=== PATIENT | female | born 1945 | race Caucasian/White ===

== ENCOUNTER 2021-04-11 12:05 | Outpatient (CLI) | payer MEDICARE ==
[2021-04-11 14:28] LABS: Hemoglobin 11.4 g/dL (12.0-15.5); Mean Corpuscular HGB CONC 31.1 g/dL (32.0-36.0); Mean Corpuscular Hemoglobin 28.5 pg (27.0-33.0); Mean Corpuscular Volume 91.8 fl (81.6-98.3); Mean Platelet Volume 8.5 fl (7.4-10.4); Platelet Count 190 10x3/uL (150-450); RBC Distribution Width 13.5 % (11.5-14.5); White Blood Cell (WBC) Count 7.8 10x3/uL (3.5-10.5)
[2021-04-11 14:53] LABS: Anion Gap 12 mmol/L (10-20); BUN (Urea Nitrogen) 17 mg/dL (9.8-20.1); Calc. Creatinine Clearance 0 mL/min (70-130); Calcium 9.2 mg/dL (7.8-10.44); Carbon Dioxide 31 mmol/L (23-31); Chloride 97 mmol/L (98-107); Glucose 82 mg/dL (83-110); Potassium 5.4 mmol/L (3.5-5.1); Sodium 135 mmol/L (136-145)
[2021-04-11 20:56] LABS: SARS-CoV-2 PCR by NAA Not Detected (NotDetected)
== END 2021-04-11 12:06 | disposition home or self-care (01) ==
LOC: CSHLAB 12:05
PROVIDERS: ATTEND Podiatrist Foot & Ankle Surgery
DX: Z01.812 Encounter for preprocedural laboratory examination (principal); Z20.822 Contact with and (suspected) exposure to COVID-19; M20.41 Other hammer toe(s) (acquired), right foot
CPT/HCPCS: 80048; 85027; 87635; U0003; U0005

== ENCOUNTER 2021-04-16 09:24 | Day surgery (SDC) | payer MEDICARE ==
[2021-04-15 11:26] VITALS: BMI 37.9
[2021-04-16] MEDS ORDERED: Lidocaine 2% 20 ml MDV ONE (10:42)
[2021-04-16] MEDS ORDERED: Neomycin-Polymyxin 1 ML AMP ONE (10:43)
[2021-04-16] MEDS ORDERED: Bupivacaine PF 0.5% 30 ML VIAL ONE (10:43)
[2021-04-16] MEDS ORDERED: Lidocaine 1% MPF 2 ML VIAL ONE (11:23)
[2021-04-16] MEDS ORDERED: PROPOFOL 20 ML ONE (11:52)
[2021-04-16] MEDS ORDERED: Lidocaine 1% PF 5 ML VIAL ONE (11:52)
[2021-04-16] MEDS ORDERED: Fentanyl 100 MCG/2 ML VIAL ONE (11:52)
[2021-04-16] MEDS ORDERED: PHENYLEPHRINE-NS 100 MCG/ML 10 ML SYRINGE ONE (12:52)
[2021-04-16] MEDS ORDERED: Ondansetron PF 4 MG/2 ML Vial ONE (13:43)
== END 2021-04-16 15:35 | disposition home or self-care (01) ==
LOC: CSHSDC 09:24
PROVIDERS: ATTEND Podiatrist Foot & Ankle Surgery
DX: M20.41 Other hammer toe(s) (acquired), right foot (principal); Z79.899 Other long term (current) drug therapy; I10 Essential (primary) hypertension; Z90.710 Acquired absence of both cervix and uterus
CPT/HCPCS: 76000; C1713; J2405; J2704; J3010; J3490; S0020

== ENCOUNTER 2022-05-10 21:59 | Inpatient (IN) | payer MEDICARE ==
[2022-05-10 23:32] LABS: #Basophils 0.1 10x3/uL (0.0-0.2); #Eosinphils 0.6 10x3/uL (0.0-0.5); #Monocytes 1.1 10x3/uL (0.0-1.1); %Basophils 0.6 % (0.0-2.0); %Eosinophils 5.7 % (0.0-6.0); %Lymphocytes 24.8 % (18.0-47.0); %Monocytes 10.7 % (0.0-10.0); %Neutrophils 57.8 % (40.0-75.0); Hemoglobin 9.8 g/dL (12.0-15.5); Mean Corpuscular Hemoglobin 29.9 pg (27.0-33.0); Mean Corpuscular Volume 90.5 fl (81.6-98.3); Mean Platelet Volume 8.6 fl (7.4-10.4); Platelet Count 211 10x3/uL (150-450); RBC Distribution Width 13.7 % (11.5-14.5); Red Blood Cell (RBC) Count 3.28 10x6/uL (3.90-5.03); White Blood Cell (WBC) Count 10.3 10x3/uL (3.5-10.5)
[2022-05-10 23:51] LABS: ALT (SGPT) 51 U/L (8-55); AST (SGOT) 75 U/L (5-34); Albumin 3.8 g/dL (3.4-4.8); Alkaline Phosphatase 61 U/L (40-110); Anion Gap 15 mmol/L (10-20); BUN (Urea Nitrogen) 36 mg/dL (9.8-20.1); Bilirubin, Total 0.5 mg/dL (0.2-1.2); Calc. Creatinine Clearance 0 mL/min (70-130); Calcium 9.4 mg/dL (7.8-10.44); Carbon Dioxide 26 mmol/L (23-31); Chloride 96 mmol/L (98-107); Globulin 3.1 g/dL (2.4-3.5); Glucose 87 mg/dL (83-110); Potassium 4.7 mmol/L (3.5-5.1); Protein, Total 6.9 g/dL (5.8-8.1); Sodium 132 mmol/L (136-145)
[2022-05-11 00:10] LABS: SARS-CoV-2 NAA Rapid Test Not Detected (NotDetected)
[2022-05-11 00:39] LABS: Bilirubin 3+ (Negative); Blood, Urine 25 (Negative); Clarity Slightly Cloudy (Clear); Glucose, Urine (Dipstick) Normal (Negative); Ketone, Urine Negative (Negative); Leukocyte 100 (Negative); Nitrite Positive (Negative); Protein, Urine (Dipstick) 30 mg/dl (Neg-Trace)
[2022-05-11 00:56] LABS: Squamous Epithelial 0-3 HPF (0-3)
[2022-05-11 00:57] LABS: Bacteria/HPF Rare-Few HPF (None Seen)
[2022-05-11] MEDS ORDERED: cefTRIAXone\\ROCEPHIN 2 GM VIAL ONE (01:26)
[2022-05-11] MEDS ORDERED: Azithromycin 250 MG TAB ONE (01:54)
[2022-05-11] MEDS ORDERED: Ondansetron PF 4 MG/2 ML Vial IVP PRN (02:34)
[2022-05-11] MEDS ORDERED: Acetaminophen 325 MG TAB PO PRN (02:34)
[2022-05-11] MEDS ORDERED: Zolpidem Tartrate 5 MG TAB PO PRN (02:34)
[2022-05-11] MEDS ORDERED: Bisacodyl 5 MG TAB PO PRN (02:34)
[2022-05-11] MEDS ORDERED: Furosemide 20 MG TAB PO PRN (02:37)
[2022-05-11 03:04] LABS: #Basophils 0.1 10x3/uL (0.0-0.2); #Eosinphils 0.5 10x3/uL (0.0-0.5); #Monocytes 0.9 10x3/uL (0.0-1.1); #Neutrophils 4.6 10x3/uL (1.5-8.4); %Basophils 0.8 % (0.0-2.0); %Eosinophils 6.4 % (0.0-6.0); %Lymphocytes 23.4 % (18.0-47.0); %Monocytes 11.6 % (0.0-10.0); %Neutrophils 57.5 % (40.0-75.0); Hemoglobin 9.2 g/dL (12.0-15.5); Mean Corpuscular HGB CONC 32.9 g/dL (32.0-36.0); Mean Corpuscular Hemoglobin 29.9 pg (27.0-33.0); Mean Corpuscular Volume 90.9 fl (81.6-98.3); Mean Platelet Volume 8.3 fl (7.4-10.4); Platelet Count 170 10x3/uL (150-450); RBC Distribution Width 13.8 % (11.5-14.5); Red Blood Cell (RBC) Count 3.08 10x6/uL (3.90-5.03); White Blood Cell (WBC) Count 7.9 10x3/uL (3.5-10.5)
[2022-05-11 03:44] LABS: Albumin 3.4 g/dL (3.4-4.8); Anion Gap 15 mmol/L (10-20); BUN (Urea Nitrogen) 30 mg/dL (9.8-20.1); BUN/Creatinine Ratio 23.08; Calc. Creatinine Clearance 0 mL/min (70-130); Calcium 8.6 mg/dL (7.8-10.44); Carbon Dioxide 24 mmol/L (23-31); Chloride 101 mmol/L (98-107); Glucose 92 mg/dL (83-110); Potassium 4.2 mmol/L (3.5-5.1); Sodium 136 mmol/L (136-145)
[2022-05-11 06:09] LABS: Phosphorus 3.3 mg/dL (2.3-4.7)
[2022-05-11 07:20] VITALS: BMI 42.7
[2022-05-11] MEDS: Cholecalciferol 1,000 UNITS (25 MCG) TAB PO SCH (08:12)
[2022-05-11] MEDS: Sodium Chloride 0.9% 1,000 ML IV SCH ×2 (08:12→14:47)
[2022-05-11] MEDS: Bupropion 100 MG SR TAB PO SCH (08:12)
[2022-05-11] MEDS: Folic Acid 1 MG TAB PO SCH (08:13)
[2022-05-11] MEDS: Escitalopram Oxalate 10 mg Tablet PO SCH (08:13)
[2022-05-11] MEDS: Cefepime 2 GM in Sodium Chloride 0.9% 100 ML IVPB SCH ×2 (08:13→19:39)
[2022-05-11] MEDS: Gabapentin 300 MG CAP PO SCH ×3 (08:13→19:40)
[2022-05-11] MEDS ORDERED: Famotidine 20 MG TAB PO SCH (09:00)
[2022-05-11] MEDS ORDERED: Enoxaparin Sodium 30 MG/0.3 ML SYRINGE SC SCH (09:00)
[2022-05-11] MEDS: traZODone HCl 50 MG TAB PO SCH (19:39)
[2022-05-11] MEDS: Simvastatin 10 MG TAB PO SCH (19:40)
[2022-05-12 04:59] LABS: Anion Gap 13 mmol/L (10-20); BUN (Urea Nitrogen) 10 mg/dL (9.8-20.1); Calc. Creatinine Clearance 116 mL/min (70-130); Calcium 8.9 mg/dL (7.8-10.44); Carbon Dioxide 28 mmol/L (23-31); Chloride 105 mmol/L (98-107); Glucose 102 mg/dL (83-110); Potassium 4.6 mmol/L (3.5-5.1); Sodium 141 mmol/L (136-145)
[2022-05-12 05:07] LABS: #Eosinphils 0.3 10x3/uL (0.0-0.5); #Monocytes 0.5 10x3/uL (0.0-1.1); #Neutrophils 3.4 10x3/uL (1.5-8.4); %Basophils 0.6 % (0.0-2.0); %Eosinophils 5.6 % (0.0-6.0); %Lymphocytes 21.5 % (18.0-47.0); %Neutrophils 62.1 % (40.0-75.0); Hemoglobin 9.3 g/dL (12.0-15.5); Mean Corpuscular HGB CONC 31.8 g/dL (32.0-36.0); Mean Corpuscular Hemoglobin 29.2 pg (27.0-33.0); Mean Corpuscular Volume 91.5 fl (81.6-98.3); Mean Platelet Volume 8.6 fl (7.4-10.4); Platelet Count 187 10x3/uL (150-450); RBC Distribution Width 13.8 % (11.5-14.5); Red Blood Cell (RBC) Count 3.19 10x6/uL (3.90-5.03); White Blood Cell (WBC) Count 5.4 10x3/uL (3.5-10.5)
[2022-05-12] MEDS: Levothyroxine Sodium 88 MCG TAB PO SCH (05:07)
[2022-05-12] MEDS: Sodium Chloride 0.9% 1,000 ML IV SCH (05:07)
[2022-05-12] MEDS: Enoxaparin Sodium 40 MG/0.4 ML SYRINGE SC SCH (08:30)
[2022-05-12] MEDS: Cholecalciferol 1,000 UNITS (25 MCG) TAB PO SCH (08:30)
[2022-05-12] MEDS: Escitalopram Oxalate 10 mg Tablet PO SCH (08:30)
[2022-05-12] MEDS: Folic Acid 1 MG TAB PO SCH (08:30)
[2022-05-12] MEDS: Gabapentin 300 MG CAP PO SCH ×3 (08:30→20:19)
[2022-05-12] MEDS: Cefepime 2 GM in Sodium Chloride 0.9% 100 ML IVPB SCH ×2 (08:31→20:21)
[2022-05-12] MEDS: Bupropion 100 MG SR TAB PO SCH (08:32)
[2022-05-12] MEDS ORDERED: Famotidine 20 MG TAB PO SCH (09:00)
[2022-05-12] MEDS: HYDROcodone/Acetaminophen 10/325 mg Tablet PO PRN ×2 (15:50→20:41)
[2022-05-12] MEDS: traZODone HCl 50 MG TAB PO SCH (20:19)
[2022-05-12] MEDS: Famotidine 20 MG TAB PO SCH (20:20)
[2022-05-12] MEDS: hydrALAZINE 20 MG/ML VIAL SLOW IVP PRN (20:37)
[2022-05-12] MEDS: Simvastatin 10 MG TAB PO SCH (20:37)
[2022-05-12] MEDS: Morphine 2 MG/ML VIAL SLOW IVP PRN (23:32)
[2022-05-13] MEDS ORDERED: Nitroglycerin 2% Ointment 1 INCH/1 GM Packet TOP SCH (00:15)
[2022-05-13] MEDS ORDERED: Nitroglycerin 2% Ointment 1 INCH/1 GM Packet ONE (00:21)
[2022-05-13] MEDS: HYDROcodone/Acetaminophen 10/325 mg Tablet PO PRN ×4 (03:20→20:15)
[2022-05-13] MEDS: Levothyroxine Sodium 88 MCG TAB PO SCH (05:10)
[2022-05-13] MEDS: Folic Acid 1 MG TAB PO SCH (09:30)
[2022-05-13] MEDS: Gabapentin 300 MG CAP PO SCH ×3 (09:30→20:16)
[2022-05-13] MEDS: Famotidine 20 MG TAB PO SCH ×2 (09:31→20:15)
[2022-05-13] MEDS: Escitalopram Oxalate 10 mg Tablet PO SCH (09:31)
[2022-05-13] MEDS: Cefepime 2 GM in Sodium Chloride 0.9% 100 ML IVPB SCH (09:31)
[2022-05-13] MEDS: Cholecalciferol 1,000 UNITS (25 MCG) TAB PO SCH (09:31)
[2022-05-13] MEDS: Bupropion 100 MG SR TAB PO SCH (09:31)
[2022-05-13] MEDS: Enoxaparin Sodium 40 MG/0.4 ML SYRINGE SC SCH (09:31)
[2022-05-13] MEDS: hydrALAZINE 20 MG/ML VIAL SLOW IVP PRN (09:36)
[2022-05-13] MEDS ORDERED: Labetalol HCl 100 MG/20 ML VIAL SLOW IVP PRN (11:36)
[2022-05-13] MEDS: Cefuroxime Axetil 250 MG TAB PO SCH (20:15)
[2022-05-13] MEDS: traZODone HCl 50 MG TAB PO SCH (20:16)
[2022-05-13] MEDS: Simvastatin 10 MG TAB PO SCH (20:16)
[2022-05-13] MEDS ORDERED: Amlodipine 5 MG TAB PO SCH (21:00)
[2022-05-14] MEDS: HYDROcodone/Acetaminophen 10/325 mg Tablet PO PRN ×3 (06:26→16:20)
[2022-05-14] MEDS: Levothyroxine Sodium 88 MCG TAB PO SCH (06:26)
[2022-05-14] MEDS: Folic Acid 1 MG TAB PO SCH (08:35)
[2022-05-14] MEDS: Cholecalciferol 1,000 UNITS (25 MCG) TAB PO SCH (08:35)
[2022-05-14] MEDS: Bupropion 100 MG SR TAB PO SCH (08:35)
[2022-05-14] MEDS: Gabapentin 300 MG CAP PO SCH ×2 (08:35→14:57)
[2022-05-14] MEDS: Enoxaparin Sodium 40 MG/0.4 ML SYRINGE SC SCH (08:35)
[2022-05-14] MEDS: Escitalopram Oxalate 10 mg Tablet PO SCH (08:35)
[2022-05-14] MEDS: Cefuroxime Axetil 250 MG TAB PO SCH (08:35)
[2022-05-14] MEDS: Famotidine 20 MG TAB PO SCH (08:35)
[2022-05-14] MEDS: Morphine 2 MG/ML VIAL SLOW IVP PRN (13:23)
[2022-05-14 16:13] VITALS: BP 136/64; TEMP 96.6
== END 2022-05-14 16:30 | DRG 690 ==
LOC: CSHERS 21:59 → CSHIMCU 05-11 06:20 → CSHTELE 05-12 14:07
PROVIDERS: ADMIT Internal Medicine; ATTEND Internal Medicine
DX: N39.0 Urinary tract infection, site not specified (principal); Z68.41 Body mass index [BMI] 40.0-44.9, adult; N17.9 Acute kidney failure, unspecified; M06.9 Rheumatoid arthritis, unspecified; I12.9 Hypertensive chronic kidney disease with stage 1 through stage 4 chronic kidney disease, or unspecified chronic kidney disease; E78.5 Hyperlipidemia, unspecified; I25.10 Atherosclerotic heart disease of native coronary artery without angina pectoris; N18.2 Chronic kidney disease, stage 2 (mild); M48.061 Spinal stenosis, lumbar region without neurogenic claudication; G62.9 Polyneuropathy, unspecified; E66.9 Obesity, unspecified; E78.00 Pure hypercholesterolemia, unspecified; K21.9 Gastro-esophageal reflux disease without esophagitis; E03.9 Hypothyroidism, unspecified; F32.A Depression, unspecified; R09.02 Hypoxemia; M48.02 Spinal stenosis, cervical region; M54.50 Low back pain, unspecified; Z96.653 Presence of artificial knee joint, bilateral; Z20.822 Contact with and (suspected) exposure to COVID-19; Z60.2 Problems related to living alone; Z88.0 Allergy status to penicillin; Z88.5 Allergy status to narcotic agent; Z79.899 Other long term (current) drug therapy; Z79.890 Hormone replacement therapy; Z98.890 Other specified postprocedural states; Z90.722 Acquired absence of ovaries, bilateral; Z90.49 Acquired absence of other specified parts of digestive tract
CPT/HCPCS: 36415; 70450; 71045; 72131; 80048; 80053; 80069; 81003; 81015; 84484; 85025; 87040; 87086; 93005; 94760; J0360; J0692; J0696; J1650; J2270; J2405; J3490; J7050

== ENCOUNTER 2022-05-26 19:37 | Emergency (ER) | payer MEDICARE ==
[~2022-05-26 19:37] MED LIST: Iopamidol 370 76% 100 ML VIAL ONE
[2022-05-26] MEDS ORDERED: Morphine 4 MG/ML VIAL ONE (20:37)
[2022-05-26] MEDS ORDERED: Furosemide 40 MG/4 ML VIAL ONE (20:38)
[2022-05-26 20:54] LABS: #Basophils 0.1 10x3/uL (0.0-0.2); #Eosinphils 0.2 10x3/uL (0.0-0.5); #Monocytes 0.7 10x3/uL (0.0-1.1); #Neutrophils 4.1 10x3/uL (1.5-8.4); %Basophils 0.7 % (0.0-2.0); %Eosinophils 3.3 % (0.0-6.0); %Lymphocytes 26.3 % (18.0-47.0); %Monocytes 9.5 % (0.0-10.0); %Neutrophils 59.9 % (40.0-75.0); D-Dimer Test 1.78 mg/L FEU (0.19-0.50); Hemoglobin 9.1 g/dL (12.0-15.5); INR-International Normal Ratio 1.1; Mean Corpuscular HGB CONC 31.3 g/dL (32.0-36.0); Mean Platelet Volume 9.1 fl (7.4-10.4); PTT 24.9 sec (22.0-33.0); Platelet Count 180 10x3/uL (150-450); Prothrombin Time 11.8 sec (9.5-12.1); RBC Distribution Width 14.6 % (11.5-14.5); Red Blood Cell (RBC) Count 3.03 10x6/uL (3.90-5.03); White Blood Cell (WBC) Count 6.9 10x3/uL (3.5-10.5)
[2022-05-26 20:57] LABS: ALT (SGPT) 14 U/L (8-55); AST (SGOT) 13 U/L (5-34); Albumin 3.6 g/dL (3.4-4.8); Alkaline Phosphatase 61 U/L (40-110); Anion Gap 13 mmol/L (10-20); BUN (Urea Nitrogen) 10 mg/dL (9.8-20.1); Bilirubin, Total 0.2 mg/dL (0.2-1.2); Calc. Creatinine Clearance 0 mL/min (70-130); Calcium 8.5 mg/dL (7.8-10.44); Carbon Dioxide 31 mmol/L (23-31); Chloride 98 mmol/L (98-107); Estimated GFR 52; Globulin 2.6 g/dL (2.4-3.5); Glucose 103 mg/dL (83-110); Lipase 15 U/L (8-78); Magnesium 1.8 mg/dL (1.6-2.6); Potassium 3.5 mmol/L (3.5-5.1); Protein, Total 6.2 g/dL (5.8-8.1); Sodium 138 mmol/L (136-145)
[2022-05-26 21:23] LABS: SARS-CoV-2 NAA Rapid Test Not Detected (NotDetected)
[2022-05-26 22:11] LABS: Bilirubin Neg (Negative); Blood, Urine 10 (Negative); Clarity Clear (Clear); Glucose, Urine (Dipstick) Normal (Negative); Ketone, Urine Negative (Negative); Leukocyte Negative (Negative); Nitrite Negative (Negative); Protein, Urine (Dipstick) Negative (Neg-Trace); Urobilinogen Normal mg/dL (Less than 2)
[2022-05-26 22:26] LABS: Bacteria/HPF Rare-Few HPF (None Seen); RBC/HPF 0-3 HPF (0-3); Squamous Epithelial 0-3 HPF (0-3); WBC/HPF 0-3 HPF (0-3)
[2022-05-27 00:38] LABS: Troponin I Less than 0.010 ng/mL (< 0.028)
== END 2022-05-27 01:03 | disposition home or self-care (01) ==
LOC: CSHERS 19:37
DX: J81.1 Chronic pulmonary edema (principal); R06.02 Shortness of breath; Z20.822 Contact with and (suspected) exposure to COVID-19; E03.9 Hypothyroidism, unspecified; K21.9 Gastro-esophageal reflux disease without esophagitis; I11.0 Hypertensive heart disease with heart failure; I50.9 Heart failure, unspecified; Z79.899 Other long term (current) drug therapy
CPT/HCPCS: 71045; 71275; 80053; 83690; 83735; 83880; 84484; 85025; 85379; 85610; 85730; 93005; U0002; 36415; 81003; 81015; 96374; 96375; J1940; J2270; Q9967

== ENCOUNTER 2023-01-05 09:42 | Outpatient (CLI) | payer MEDICARE | END 2023-01-05 09:43 | disposition home or self-care (01) | LOC: CSHRAD 09:42 | PROVIDERS: ATTEND Student in an Organized Health Care Education/Training Program | DX: R13.14 Dysphagia, pharyngoesophageal phase (principal); R63.30 Feeding difficulties, unspecified; K21.9 Gastro-esophageal reflux disease without esophagitis; R13.13 Dysphagia, pharyngeal phase | CPT/HCPCS: 74230 ==